=== PATIENT | female | born 1970 | race Caucasian/White ===

== ENCOUNTER 2019-05-21 13:06 | Emergency (ER) | payer BC, OTHER ==
[~2019-05-21] VITALS: Ht 157.5 cm; Wt 5.4 kg
[~2019-05-21 13:06] MED LIST: IBUP-1051 PO; NO HOME MEDS; ONDA4TAB6 PO; SUCR1ORA2 PO; VAL2T PO
[2019-05-21 13:33] LABS: BASOPHILS % (AUTO) 0.5 % (0-1); EOSINOPHILS # (AUTO) 0.1 X10'3 (0-0.9); EOSINOPHILS % (AUTO) 0.6 % (0-6); HEMATOCRIT 42.6 % (35.0-45.0); HEMOGLOBIN 14.2 g/dl (12.0-16.0); LYMPHOCYTES # (AUTO) 2.9 X10'3 (1.1-4.8); LYMPHOCYTES % (AUTO) 32.3 % (21-51); MEAN CORPUSCULAR HEMOGLOBIN 30.9 PG (27.0-31.0); MEAN CORPUSCULAR HGB CONC 33.3 g/dL (33.0-36.5); MEAN PLATELET VOLUME 8.2 FL (7.4-10.4); MONOCYTES # (AUTO) 0.8 X10'3 (0-0.9); MONOCYTES % (AUTO) 9.1 % (2-12); NEUTROPHILS # (AUTO) 5.2 X10'3 (1.8-7.7); NEUTROPHILS % (AUTO) 57.5 % (42-75); PLATELET COUNT 324 X10'3 (140-440); RED BLOOD COUNT 4.59 X10'6 (4.20-5.60); RED CELL DISTRIBUTION WIDTH 12.7 % (11.5-14.5)
[2019-05-21 13:44] LABS: ALANINE AMINOTRANSFERASE 27 U/L (12-78); ALBUMIN 3.8 G/DL (3.4-5.0); ALBUMIN/GLOBULIN RATIO 1.1 (1.1-1.5); ALKALINE PHOSPHATASE 78 IU/L (46-116); AMYLASE 88 U/L (25-115); ANION GAP 4 (8-16); ASPARTATE AMINO TRANSFERASE 13 U/L (10-37); BILIRUBIN,TOTAL 0.2 MG/DL (0.1-1.0); BLOOD UREA NITROGEN 14 MG/DL (7-18); BUN/CREATININE RATIO 20.3 (6.6-38.0); CALCIUM 9.1 MG/DL (8.5-10.1); CHLORIDE 106 MMOL/L (99-107); CREATININE 0.69 MG/DL (0.40-0.90); GLUCOSE 99 MG/DL (70-104); LIPASE 244 U/L (73-393); POTASSIUM 4.1 MMOL/L (3.5-5.1); SODIUM 141 MMOL/L (135-145); TOTAL CARBON DIOXIDE 31.2 MMOL/L (24-32); TOTAL PROTEIN 7.2 G/DL (6.4-8.2); eGFR > 90 ML/MIN
[2019-05-21 14:04] LABS: CLARITY,URINE SLIGHTLY CLOUDY (Clear); COLOR,URINE STRAW (Yellow); GLUCOSE, URINE NEGATIVE (Neg); KETONES,URINE NEGATIVE (Neg); LEUKOCYTE ESTERASE ,URINE NEGATIVE (Neg); NITRITES, URINE NEGATIVE (Neg); OCCULT BLOOD,URINE NEGATIVE (Neg); PROTEIN,URINE NEGATIVE (Neg); UROBILINOGEN,URINE 0.2 E.U/dL (0.2-1.0)
[2019-05-21 14:05] LABS: UA COLLECTION TYPE CLN CATCH MIDSTREAM
[2019-05-21 14:07] LABS: URINE HCG NEGATIVE (NEG)
[2019-05-21 14:10] LABS: MUCUS STRANDS FEW /LPF (Neg); RBC,URINE 0-2 /HPF (0-2); SQUAMOUS EPITHELIAL CELL,UR MODERATE /LPF (FEW); WBC,URINE 0-4 /HPF (0-4)
[2019-05-21 14:11] LABS: AMORPHOUS PHOSPHATES 1+; BACTERIA,URINE FEW /HPF (Neg)
[2019-05-21] MEDS ORDERED: haloperidol lactate 5mg/ml inj IM ONE (15:10)
--- NOTE | 2019-05-21 16:10 | NUR ---
Dr Rasheed made aware patient refused Haldol (see emar) and is refusing to go to CT scan until she receives pain medication. MD to speak with patient.
--- NOTE | 2019-05-21 16:16 | NUR ---
Dr Hidalgo in to speak with patient, MD offered alternative treatment for abdominal pain and discomfort, patient's at bedside and eating In-n-out. Patient states she just wants the IV out and to go home. MD to populate paperwork.
[2019-05-21 16:25] VITALS: BP 102/71
== END 2019-05-21 16:26 | disposition home or self-care (01) ==
LOC: ER 13:07
DX: R10.32 Left lower quadrant pain (principal); M54.5 Low back pain; G43.909 Migraine, unspecified, not intractable, without status migrainosus; K21.9 Gastro-esophageal reflux disease without esophagitis; F17.200 Nicotine dependence, unspecified, uncomplicated; Z98.890 Other specified postprocedural states; Z88.0 Allergy status to penicillin; Z88.5 Allergy status to narcotic agent; Z79.899 Other long term (current) drug therapy
CPT/HCPCS: 36415; 80053; 81001; 81025; 82150; 83690; 85025; 85610; 99283; J1630

== ENCOUNTER 2023-08-21 10:53 | Emergency (ER) | payer SELFPAY ==
[~2023-08-21] VITALS: Ht 157.5 cm; Wt 60.8 kg
[2023-08-21 11:08] VITALS: BP 114/72; PULSE 75; RESP 18; TEMP 97.9; O2SAT 98
== END 2023-08-21 15:26 | disposition left against medical advice (07) ==
LOC: ER 10:54
DX: H92.02 Otalgia, left ear (principal); Z53.21 Procedure and treatment not carried out due to patient leaving prior to being seen by health care provider
CPT/HCPCS: 99281

== ENCOUNTER 2023-11-25 18:25 | Emergency (ER) | payer OTHER ==
[~2023-11-25] VITALS: Ht 157.5 cm; Wt 62.7 kg
[2023-11-25 18:57] VITALS: BP 141/76; PULSE 111; RESP 16; TEMP 97.6; O2SAT 98
== END 2023-11-25 20:27 | disposition home or self-care (01) ==
LOC: ER 18:26
DX: J04.0 Acute laryngitis (principal)
CPT/HCPCS: 99282